=== PATIENT | female | born 1995 | race Two or more races ===

== ENCOUNTER 2024-07-03 11:13 | Inpatient (IN) | payer OTHER ==
[~2024-07-03] VITALS: Ht 160 cm; Wt 66.7 kg
[2024-07-03] MEDS ORDERED: PRENATAL + DHA1 EAC1 PO (11:31)
--- NOTE | 2024-07-03 11:31 | NUR ---
SE RECIBE PACIENTE ALERTA Y ORIENTADA X3 LA CUAL REFIERE TENER 6 SEMANAS DE EMBARAZO Y SEE PRESENTADO DOLOR PELVICO. LA MISMA REFIERE QUE SE ATIENDE CON DR. ROONEY.
--- NOTE | 2024-07-03 11:59 | NUR ---
SE EJECUTAN ORDENES MEDICAS EN BAEZ TOTALIDAD
[2024-07-03 12:26] LABS: HEMATOCRIT 33.9 % (36.0-45.00); HEMOGLOBIN 11.7 g/dL (12.0-15.00); MEAN CORPUSCULAR HEMOGLOBIN 31.5 pg (27.00-32.0); MEAN CORPUSCULAR HGB CONC 34.6 g/dl (32.0-36.0); PLATELET COUNT 234 K/uL (150-450); RED BLOOD COUNT 3.73 M/uL (4.00-6.00); RED CELL DISTRIBUTION WIDTH 13.5 % (11.5-14.5)
[2024-07-03] MEDS ORDERED: 0.9 % SODIUM CHLORIDE 1,000 ML IV STA (14:06)
[2024-07-03 16:39] LABS: COVID-19 AG NEGATIVE (NEGATIVE)
[2024-07-03 16:50] LABS: INR 1.03; PARTIAL THROMBOPLASTIN TIME 27.9 SECONDS (22.0-34.0); PROTHROMBIN TIME 11.2 SECONDS (9.0-11.5)
[2024-07-03 16:51] LABS: CALCIUM 9.3 mg/dL (8.5-10.1); CREATININE SERUM 0.68 mg/dL (0.55-1.02); GFR 101.59; POTASSIUM 4.46 mEq/L (3.5-5.1)
[2024-07-03 18:33] LABS: HEMATOCRIT 36.4 % (36.0-45.00); HEMOGLOBIN 12.4 g/dL (12.0-15.00); MEAN CORPUSCULAR HEMOGLOBIN 31.4 pg (27.00-32.0); MEAN CORPUSCULAR HGB CONC 34.1 g/dl (32.0-36.0); PLATELET COUNT 241 K/uL (150-450); RED BLOOD COUNT 3.95 M/uL (4.00-6.00); RED CELL DISTRIBUTION WIDTH 13.8 % (11.5-14.5)
[2024-07-03 19:00] VITALS: BP 97/60
[2024-07-03 19:30] VITALS: BP 97/60
[2024-07-03] MEDS ORDERED: MORPHINE SULFATE 4 MG/ML CARTRIDGE IV PRN (19:30)
[2024-07-04] VITALS: BP 110/59
[2024-07-04] MEDS ORDERED: METHOTREXATE SODIUM/PF 25 MG/ML VIAL IM NR (08:00)
[2024-07-04 08:51] VITALS: BP 98/63
[2024-07-04 09:26] LABS: HEMATOCRIT 32.4 % (36.0-45.00); HEMOGLOBIN 11.1 g/dL (12.0-15.00); MEAN CELL VOLUME 91.7 fL (80.00-100.00); MEAN CORPUSCULAR HEMOGLOBIN 31.6 pg (27.00-32.0); MEAN CORPUSCULAR HGB CONC 34.4 g/dl (32.0-36.0); PLATELET COUNT 205 K/uL (150-450); RED BLOOD COUNT 3.53 M/uL (4.00-6.00); RED CELL DISTRIBUTION WIDTH 13.6 % (11.5-14.5)
[2024-07-04 16:00] VITALS: BP 100/64
[2024-07-04 23:49] VITALS: BP 101/66
[2024-07-05] MEDS ORDERED: ACETAMINOPHEN 500 MG GEL..CAP PO SCH (10:12)
[2024-07-05 12:24] VITALS: BP 104/66
[2024-07-05 16:00] VITALS: BP 100/64
[2024-07-06 00:10] VITALS: BP 98/61
[2024-07-06 08:00] VITALS: BP 98/62
[2024-07-06 16:00] VITALS: BP 90/53
[2024-07-07] VITALS: BP 95/58; O2SAT 98
[2024-07-07] MEDS ORDERED: METHOTREXATE SODIUM/PF 25 MG/ML VIAL IM STA (12:26)
== END 2024-07-07 12:50 | disposition home or self-care (01) | DRG 833 ==
LOC: ER 11:13 → OB/GYN 15:46 → SEC-K 15:46 → OB/GYN 18:32
PROVIDERS: Emergency Medicine; Obstetrics & Gynecology; ADMIT Specialist; ATTEND Specialist
PROC: BU4CZZZ Ultrasonography of Uterus and Ovaries (ICD-10-PCS; principal; 2024-07-03)
PROC: BU4CZZZ Ultrasonography of Uterus and Ovaries (ICD-10-PCS; 2024-07-04)
PROC: BY49ZZZ Ultrasonography of First Trimester, Single Fetus (ICD-10-PCS; 2024-07-04)
PROC: BY49ZZZ Ultrasonography of First Trimester, Single Fetus (ICD-10-PCS; 2024-07-07)
PROC: BU4CZZZ Ultrasonography of Uterus and Ovaries (ICD-10-PCS; 2024-07-07)
DX: O00.90 Unspecified ectopic pregnancy without intrauterine pregnancy (principal); O26.851 Spotting complicating pregnancy, first trimester; Z3A.01 Less than 8 weeks gestation of pregnancy; O36.80X0 Pregnancy with inconclusive fetal viability, not applicable or unspecified